=== PATIENT | female | born 1970 | race Caucasian/White ===

== ENCOUNTER → 2024-06-27 10:06 | Outpatient (REF) | payer OTHER, SELFPAY | LOC: RCS 10:06 | PROVIDERS: ATTENDING PHYSICIAN Internal Medicine Cardiovascular Disease; FAMILY PHYSICIAN Physician Assistant | DX: R06.02 Shortness of breath (principal); I48.0 Paroxysmal atrial fibrillation | CPT/HCPCS: 93306 ==

== ENCOUNTER 2024-07-04 05:55 | Day surgery (SDC) | payer BC, SELFPAY ==
[2024-06-11 09:40] VITALS: BMI 26.2
--- NOTE | 2024-06-11 09:42 | HPS.HSE ---
Family Physician
-
Family Physician: Shannan Sanchez PA-C
Chief Complaint
-
Paroxysmal atrial fibrillation.
History of Present Illness
The patient is a 53-year-old female presenting today for paroxysmal atrial fibrillation. The patient reports palpitations, chest heaviness, and intermittent shortness of breath associated with this diagnosis. She is on current
pharmacological therapy with Metoprolol Succinate. She was previously on Flecainide but stopped after developing a truncal rash. She reports she has been compliant with Eliquis for oral anticoagulation. She notes that her current symptoms greatly
interfere with her activities of daily living and overall impact her quality of life. She is interested in pursuing pulmonary vein isolation for further arrhythmia management. She denies any current complaints today such as chest pain and shortness
of breath at rest, nausea, vomiting, diarrhea, lightheadedness, dizziness, cough, sore throat, or fever.
Medical History
Past Medical History
Past Medical History: Reports Other
Additional Past Medical History:
1. Paroxysmal atrial fibrillation, pharmacological therapy with Metoprolol Succinate and oral anticoagulation with Eliquis.
2. Hypertension.
3. Mild-moderate tricuspid regurgitation.
4. Mild mitral regurgitation.
5. Questionable obstructive sleep apnea, sleep study advised.
6. Hepatic cyst.
7. Irritable bowel syndrome.
8. Remote migraines.
9. Rare vertigo.
10. Remote history of tobacco abuse.
Past Surgical History: Reports Other
Additional Past Surgical History:
1. Linq implant.
2. Sinus surgery x2.
3. Laparoscopic cystectomy.
4. Bilateral tubal ligation.
Social History
Tobacco: Former Smoker (She is a former 'social' cigarette smoker who quit tobacco altogether 20 years ago. )
Alcohol: Other (Social. )
Personal:
Living: Other (She lives with her in a 3 story home. )
Family History
Family History: Not pertinent
Allergies / Home Medications
Allergy/Medication List:
Home medications:
1. Apixaban 5 mg p.o. twice a day.
2. Ashlyna 1 tablet p.o. daily.
3. Metoprolol Succinate 25 mg p.o. daily.
Allergies: Flecainide (per records).
Review of Systems
-
A 12 point ROS was completed and negative except as noted: Yes
Physical Exam
Vital Signs
Blood pressure 118/74. Heart rate 72. Respirations 18. Pulse ox 100% on room air.
Height 5 feet, 3 inches. Weight 67 kg. BMI 26.2.
Physical Exam
General: Well Developed, Well Nourished and No Apparent Distress
HEENT: NormoCephalic, Moist mucous membranes, Atraumatic and PERRLA
Respiratory: Clear
Cardiac: Regular Rhythm
GI: Soft, Non Tender and Non Distended
Musculoskeletal: No Edema and Normal Gait & Station
Skin: Warm and Dry
Neuro: AO x 3 and Nonfocal/grossly intact
Laboratory Results
-
DIAGNOSTIC STUDIES as of 06/11/2024: White blood cell count 7.5. Hemoglobin 12.8. Platelet count 306,000. PT 14.9. INR 1.12. Sodium 138. Potassium 4.7. BUN 17. Creatinine 0.7. Glucose 97. Calcium 9.6. AST 20. ALT 14. Albumin 4.6. Type and screen A
negative.
EKG 06/11/2024: Normal sinus rhythm.
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 Single, individual left superior and inferior pulmonary veins. No left atrial filling defect/thrombus is identified
Stress echocardiogram 06/20/2022: Normal Stress Echocardiogram with normal hemodynamic response to exercise. ECG positive by criteria. Good exercise capacity for age. Overall, low risk stress test.
Echocardiogram 08/19/2020: Normal left ventricular size, wall thickness, and systolic function. Estimated ejection fraction is 65%. Normal right ventricular size and function. Mild mitral regurgitation. Mild to moderate tricuspid regurgitation.
Estimated pulmonary artery pressure of 38 mmHg.
Impression/Plan
-
IMPRESSION/PLAN:
1. Paroxysmal atrial fibrillation: The patient is in need of pulmonary vein isolation with Dr. Kwaku Ng on 07/04/2024. The benefits and risks of the procedure have been explained to the patient. The patient understands these risks and wishes to
proceed. She will not be required to undergo a pre-procedural transesophageal echocardiogram given she has been compliant with her home oral anticoagulation. She is aware to continue Eliquis uninterrupted prior to her procedure. She will take no
medications the morning of her ablation.
[2024-06-11 10:23] LABS: INR 1.12; PT 14.9 Sec (11.4-14.6)
[2024-06-11 10:24] LABS: ALT (SGPT) 14 U/L (0-35); AST (SGOT) 20 U/L (14-36); Albumin 4.6 g/dl (3.5-5.0); Alkaline Phosphatase 44 U/L (38-126); Blood Urea Nitrogen 17 mg/dl (7-17); Calcium 9.6 mg/dl (8.4-10.2); Carbon Dioxide 24 mmol/L (22-30); Chloride 102 mmol/L (98-107); Estimated Creatinine Clearance 77 ml/min; Glucose 97 mg/dl (70-99); Magnesium 2.2 mg/dl (1.6-2.3); Potassium 4.7 mmol/L (3.5-5.1); Sodium 138 mmol/L (135-145); Total Bilirubin 1.5 mg/dl (0.2-1.3); Total Protein 7.6 g/dl (6.3-8.2); eGFR > 60.00
[2024-06-11 11:18] LABS: % Basophils 0.7 % (0-2); % Eosinophils 1.2 % (0-6); % Immature Granulocytes 0.4 % (0-0.5); % Lymphocytes 22.6 % (20.5-51.1); % Monocytes 8.5 % (1.7-9.3); % Neutrophils 66.6 % (42.2-75.2); Absolute Basophils 0.1 10^3/uL (0-0.2); Absolute Eosinophils 0.1 10^3/uL (0-0.7); Absolute Lymphocytes 1.7 10^3/uL (1.2-3.4); Absolute Monocytes 0.6 10^3/uL (0.1-0.6); Hematocrit 37.9 % (37.0-47.0); Hemoglobin 12.8 g/dL (12.0-16.0); Mean Corp Hgb Conc. 33.8 g/dL (33.0-37.0); Mean Corpuscular Hgb 31.2 pg (27.0-31.0); Mean Corpuscular Volume 92.4 fL (81.0-99.0); Mean Platelet Volume 11.1 fL (7.4-10.4); Nucleated Red Blood Cells % 0 %; Platelet Count 306 10^3/uL (130-400); Red Cell Dist. Width 12.2 % (11.5-14.5); White Blood Cell Count 7.5 10^3/uL (4.8-10.8)
[2024-07-04] VITALS (13 sets, daily range): BP systolic 102–126; BP diastolic 60–82; BMI 25.7
[2024-07-04] MEDS: NSS 1000 IV (06:40)
[2024-07-04 06:42] LABS: HCG, Urine Qualitative Screen Negative
[2024-07-04 08:51] LABS: ACT-LR - POC 308 Seconds (116-155)
[2024-07-04 09:08] LABS: ACT-LR - POC 297 Seconds (116-155)
--- NOTE | 2024-07-04 09:46 | ITS.CL.ABL ---
[facility]ist - Ablation
Ablation
Procedure Report:
ELECTROPHYSIOLOGY ABLATION STUDY
DATE:: July 04, 2024�����������������������������REFERRING: Dr. Ng
INDICATION: Paroxysmal supraventricular tachycardia in the form of atrial fibrillation.
HISTORY: See H and P.� Participate in the smile AF trial randomizing patients to PVI versus PVI plus posterior wall patient is blinded to treatment arm
ANTIARRHYTHMIC DRUG: Apixaban and metoprolol
PRE-PROCEDURE GARTH: No intracardiac thrombus
PRESENTING RHYTHM: Sinus rhythm
'TIME-OUT':��called and confirmed.
SEDATION/ANESTHESIA:��provided via the anesthesia department using general anesthesia (LMA).
INTRAVENOUS/ARTERIAL ACCESS:
Right femoral venous -8Fr
Left femoral venous - 8 Fr, 6 Fr
Gzevgf-[id number]-[id number] suture
Ultrasound guidance for bilateral femoral vein access was utilized by me to obtain access with demonstration of normal anatomy
CHADS-VASC Score:
HAS-Bled Score
PROCEDURE:
1.��A decapolar CS catheter was placed within the CS for mapping and pacing.��This was also used as the reference catheter for the 3-D map. Phrenic nerve was placed at the end of procedure demonstrating appropriate capture with the decapolar
catheter. 20-minute waiting phase was given to each pulmonary vein. Pre and post electrograms were recorded and pre and post electroanatomic map was recorded. After procedure and after reversal with protamine we proceeded to Linq explant implant
see separate report.
2. The intracardiac ultrasound catheter was positioned in the RA to identify the FO for targeting of transseptal puncture, assist��in identification of the pulmonary vein ostia, monitoring pre and post ablation pulmonary vein flow velocities,
monitoring for 'bubble' formation during RF application as a sign of thermal injury,��and to monitor for pericardial effusion during mapping and ablation procedure.���Left atrial size, LV ejection fraction, and pulmonary vein flows were monitored
pre and post ablation procedure. The other valves were inspected and found to be free of significant regurgitation or stenosis.
3.��Half of the calculated heparin bolus was administered prior to the first transeptal puncture.��Transseptal puncture was performed to diagnose RA and LA pressure so that safety of LA mapping and ablation could be further assessed, and to access
the left atrium and pulmonary veins for mapping and ablation.��This entailed advancing an 16 Czech sheath with dilator into the superior vena cava and withdrawing both (monitoring intracardiac ultrasound, fluoroscopy and tip pressure) with the tip
oriented toward the atrial septum.��The fossa ovalis was engaged (indicated by sudden displacement of the sheath tip as well as tenting of the fossa seen on intracardiac ultrasound).��Left atrial access required a pass with the Brocken[place]rough needle
extended.��Left atrial catheter position was confirmed by pressure monitoring (RA mean pressure 8 mm Hg and LA mean presure 14 mm Hg), LA saturation ( 99 %),��as well as fluoroscopy.��The sheath was advanced over the dilator and positioned in the
left atrium.���The remainder of the calculated heparin bolus was administered and heparin was
infused to maintain ACT at 300 -350 seconds throughout the case.
4.��RA pacing was performed via the proximal decapolar poles and LA pacing was performed via the distal decapolr poles.
5. A quadrapolar catheter was first positioned at the His position for His Bundle recording which was tagged via the 3-D Navex sytem, and then passed to the RVA for RV pacing and recording.
6. 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
7.��Next, a 3-D map was created using Navex.���A 3-D reconstructed CT image was compared to the 3-D Navex map to assist in anatomic interpretation, mapping and ablation.��The CT image and the NavX image were fused.
8. All of and basket poses were given to each of the 5 pulmonary veins except the right middle pulmonary vein which was addressed with basket only due to its diminutive size. Additional flower applications to the right pulmonary veins were given
at. A total of 32 lesions through the entire procedure. Entrance and exit block was confirmed in all 5 pulmonary veins with the multipolar catheter draped over the right middle pulmonary vein on intracardiac ultrasound and paced. We could not
indeed engage the distal right middle pulmonary vein pre or post procedure due to its diminutive size. EP study post procedure demonstrated no other inducible tachyarrhythmia.
Sheath and catheters removed to the right atrium and protamine was given.
9. [id number] sutures to each femoral venous site and then we proceeded with Linq explant implant as separate report.
TOTAL FLOURO TIME: See radiology and EP nursing report for minutes
TOTAL RF DURATION: 0 minutes
REVERSAL OF HEPARIN: 50 mg of protamine, slow IV administration
COMPLICATIONS:
None
Intracardiac US shows no pericardial effusion post ablation.
SUMMARY:��
Complex left atrial mapping and ablation.
Isolation of all 5 pulmonary veins as above. [facility] and was blinded to treatment assignment
RECOMMENDATIONS:
1. CBC and BMP in 3 hours
2. Resume anticoagulation
3.��Monitor Linq site
4.��Consider same-day discharge
Copy to: Dr. Sergio Ng
--- NOTE | 2024-07-04 09:51 | ITS.CL.IMPLP ---
Experience Planning Strategist - Implant Loop
Implant Loop
Procedure Report:
ILR explant and implant
Date of Procedure: July 04, 2024
Patient : 1970
Procedure: Insertable Loop Recorder Implant. And removal of prior loop recorder which was at end-of-life
Indication: Post procedure AF monitoring
Implant: Reveal Linq2: [employer]; Model# LN Q22; Serial# [id number]
Technique: The patient was prepped and draped in the usual fashion.��At the end of the PVI procedure and under general anesthesia which was administered and local anesthetic was applied to the left��prepectoral subcutaneous tissue. A subcutaneous
pocket was created with stab incision at the prior incision and with blunt dissection the prior device was identified and removed. Hemostasis was excellent. The pocket was irrigated with saline solution. The new device was placed in the pocket and
3.0 Vicryl suture was utilized to close the incision. The incision was closed in 1 layers with absorbable suture. The skin was closed with steri-strips. The estimated blood��loss was minimal. There were no complications.
Final Programming: FVT 231 30/40 beats
����������������������������������VT 176 16 beats
����������������������������������Asystole 3 sec
����������������������������������Vicente 30 bpm for 4 beats
����������������������������������AF On AF only.
Conclusion: Uncomplicated insertable loop implant for AF monitoring and explant of the chronic loop which is at end-of-life and not recording.
Recommendation: Routine Reveal care.
cc: Dr. Sergio Ng
[2024-07-04] MEDS: ANESTHETIC LOZENGE 1 LOZENGE PO (10:17)
[2024-07-04 13:07] LABS: Hematocrit 34.8 % (37.0-47.0); Hemoglobin 11.7 g/dL (12.0-16.0); Mean Corp Hgb Conc. 33.6 g/dL (33.0-37.0); Mean Corpuscular Hgb 31.1 pg (27.0-31.0); Mean Corpuscular Volume 92.6 fL (81.0-99.0); Mean Platelet Volume 10.7 fL (7.4-10.4); Platelet Count 269 10^3/uL (130-400); Red Blood Cell Count 3.76 10^6/uL (4.20-5.40); Red Cell Dist. Width 12.5 % (11.5-14.5); White Blood Cell Count 14.8 10^3/uL (4.8-10.8)
[2024-07-04] MEDS: ZOFRAN 4 MG IV (13:14)
--- NOTE | 2024-07-04 13:16 | W.PN.UPDATE ---
Update Note
Progress Note Update
53 yo WF s/p PVI (same day). She denies cp, sob, ruben diet, EKG SR, b/l groins c/d/i no HT, soft. She will resume Eliquis tonight at home. She will continue metoprolol. Activity restrictions reviewed. She will f/u Dr. Ng in 2 mo. We will follow
research protocol for DAVON and get labs cbc, bmp prior to d/c.
[2024-07-04 13:26] LABS: Blood Urea Nitrogen 13 mg/dl (7-17); Calcium 7.8 mg/dl (8.4-10.2); Carbon Dioxide 16 mmol/L (22-30); Chloride 104 mmol/L (98-107); Estimated Creatinine Clearance 90 ml/min; Glucose 152 mg/dl (70-99); Potassium 4.2 mmol/L (3.5-5.1); Sodium 134 mmol/L (135-145); eGFR > 60.00
--- NOTE | 2024-07-04 13:50 | PTCARENOTE ---
Pt with c/o not feeling well but unable to describe symptoms, feeling hot and nauseous, skin is clammy, has to void but doesn't feel well enough to walk to [facility] bathroom, pt taken by stretcher on monitor to bathroom, pt able to ambulate short
distance into bathroom and void without difficulty, gait is steady, pt denying dizziness, continues to state 'I just don't feel good', Agnes LEVINE at bedside to assess pt, no change in vital signs, discharge will be delayed, pt would like to rest
for a while
== END 2024-07-04 14:40 | disposition home or self-care (01) ==
LOC: CATH 05:55
PROVIDERS: Nurse Practitioner Adult Health; ATTENDING PHYSICIAN Internal Medicine Cardiovascular Disease; FAMILY PHYSICIAN Physician Assistant
DX: I48.0 Paroxysmal atrial fibrillation (principal); Z79.899 Other long term (current) drug therapy; R00.2 Palpitations; R06.02 Shortness of breath; I10 Essential (primary) hypertension; I08.3 Combined rheumatic disorders of mitral, aortic and tricuspid valves; G47.33 Obstructive sleep apnea (adult) (pediatric); K58.9 Irritable bowel syndrome, unspecified; Z87.891 Personal history of nicotine dependence; K76.89 Other specified diseases of liver; G43.909 Migraine, unspecified, not intractable, without status migrainosus; Z79.01 Long term (current) use of anticoagulants; Z09 Encounter for follow-up examination after completed treatment for conditions other than malignant neoplasm
CPT/HCPCS: 33285; C1732; C1894; C1892; C1759; 36415; 75572; 80048; 80053; 81025; 83735; 85025; 85027; 85347; 85610; 86850; 86900; 86901; 93005; 93656; C1730; C1733; C1764; C1766; Q9967